=== PATIENT | female | born 1980 | race American Indian/Alaskan Native ===

== ENCOUNTER 2016-05-30 18:36 | Outpatient (CLI) | payer MEDICAID ==
[2016-05-30 19:07] VITALS: BP 116/60
[2016-05-30 20:15] LABS: Bacteria,Urine 1+ /HPF (Negative); Bilirubin,Urine NEG (Negative); Blood,Urine SM (Negative); Ketones,Urine NEG (Negative); Leukocyte Esterase,Urine NEG (Negative); Nitrite,Urine NEG (Negative); Protein,Urine <15 mg/dL mg/dL (Negative); Urobilinogen,Urine < 2.0 mg/dL (<2.0); WBC,Urine < 1.0 /HPF (0.0-6.0)
== END 2016-05-30 20:46 | disposition home or self-care (01) ==
LOC: TRG 18:36
PROVIDERS: ATTEND Obstetrics & Gynecology
DX: O47.02 False labor before 37 completed weeks of gestation, second trimester (principal); Z3A.20 20 weeks gestation of pregnancy
CPT/HCPCS: 81001

== ENCOUNTER 2016-10-01 19:08 | Outpatient (CLI) | payer MEDICAID ==
[2016-10-01 19:28] VITALS: BP 115/72
[2016-10-01 19:58] LABS: Bilirubin,Urine NEG (Negative); Blood,Urine NEG (Negative); Ketones,Urine NEG (Negative); Leukocyte Esterase,Urine NEG (Negative); Nitrite,Urine NEG (Negative); Protein,Urine <15 mg/dL mg/dL (Negative); RBC,Urine < 1.0 /HPF (0.0-6.0); Urobilinogen,Urine < 2.0 mg/dL (<2.0); WBC,Urine < 1.0 /HPF (0.0-6.0)
== END 2016-10-01 20:33 | disposition home or self-care (01) ==
LOC: TRG 19:08
PROVIDERS: ATTEND Obstetrics & Gynecology
DX: O26.893 Other specified pregnancy related conditions, third trimester (principal); R73.9 Hyperglycemia, unspecified; Z3A.37 37 weeks gestation of pregnancy
CPT/HCPCS: 59025; 81001; 82962

== ENCOUNTER 2016-10-10 11:56 | Outpatient (CLI) | payer MEDICAID ==
--- NOTE | 2016-10-10 13:41 | Ultrasound Report ---
ULTRASOUND BIOPHYSICAL PROFILE: History: well being Technique: Transabdominal ultrasound with Doppler interrogation. 2 - breathing movements 2 - movements 2 - posture and tone 2 - Qualitative amniotic fluid volume 8 - TOTAL SCORE OF POSSIBLE 8 Heart Rate (bpm) 141
--- NOTE | 2016-10-10 13:42 | Ultrasound Report ---
ULTRASOUND OB LIMITED History: well being Technique: Transabdominal ultrasound with Doppler interrogation. Gestation: Single Position: Cephalic Amniotic Fluid: Normal GERONIMO = 10.7 cm Heart Rate: 141 BPM
== END 2016-10-10 14:40 | disposition home or self-care (01) ==
LOC: TRG 11:56
PROVIDERS: ATTEND Obstetrics & Gynecology
DX: O47.1 False labor at or after 37 completed weeks of gestation (principal); Z3A.38 38 weeks gestation of pregnancy
CPT/HCPCS: 59025; 76815; 76819

== ENCOUNTER 2016-10-11 09:36 | Inpatient (IN) | payer MEDICAID ==
[2016-10-11] MEDS ORDERED: NITRATEST PAPER MC ONE (11:00)
[2016-10-11] MEDS ORDERED: LACTATED RINGERS 1,000 ML ONE ×3 (12:42→16:22)
[2016-10-11] MEDS ORDERED: PITOCin/NS 20 UNIT/1000ML DRIP 20,000 MILLIUNITS/1,000 ML BAG IV ONE (13:05)
[2016-10-11] MEDS ORDERED: REGLAN ONE (13:06)
[2016-10-11] MEDS ORDERED: ANCEF/STERILE WATER 2 GM/20 ML 2 GM/20 ML SYRINGE IV ONE (13:06)
[2016-10-11] MEDS ORDERED: PEPCID IV ONE ×2 (13:06→13:32)
[2016-10-11] MEDS ORDERED: BICITRA ONE (13:06)
[2016-10-11] MEDS ORDERED: ANCEF/STERILE WATER 2 GM/20 ML 2 GM/20 ML SYRINGE IV NR (13:30)
[2016-10-11] MEDS ORDERED: BICITRA PO ONE (13:32)
[2016-10-11] MEDS ORDERED: REGLAN IV ONE (13:32)
--- NOTE | 2016-10-11 13:34 | History and Physical Report ---
History of Present Illness Date of examination: 10/11/16 Date of admission: 10/11/16 09:37 Chief complaint: leaking fluid History of present illness: Pt is a 36 year old -[place] female KUMAR 10/18/16 at 39w0d presents c/o leakage of fluid since yesterday (10/10/16) at 9 am. She reports rare contractions, as well as vaginal spotting this morning. She has had care since transfer into care at 15 weeks complicated by previous x 1, morbid obesity, pregestational diabetes, latex allergy, genital herpes without lesion or prodrome and GBS positive status. 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 Family/Genetic History: diabetes Social history: no significant social history - Obstetrical History Expected Date of Delivery: 10/18/16 Actual Gestation: 39 Week(s) 0 Day(s) : 2 Para: 1 Hx # Term Pregnancies: 1 Number of Pregnancies: 0 Spontaneous Abortions: 0 Induced : 0 Number of Living Children: 1 Medications and Allergies Allergies Allergy/AdvReac Type Severity Reaction Status Date / Time No Known Allergies Allergy Verified 05/30/16 18:43 Home Medications Medication Instructions Recorded Confirmed Last Taken Type RX: No Known Home Medications [No 05/30/16 05/30/16 Unknown History Reported Home Medications] Active Meds: Active Medications Citric Acid/Sodium Citrate (Bicitra) 30 ml PO ONCE ONE Stop: 10/11/16 13:33 Famotidine (Pepcid) 20 mg IV ONCE ONE Stop: 10/11/16 13:33 Cefazolin Sodium (Ancef/Sterile Water 2 Gm/20 Ml) 2 gm in 20 mls @ 80 mls/hr IV PREOP NR PRN Reason: Protocol Lactated Ringer's (Lactated Ringers) 1,000 mls @ 2,250 mls/hr IV PREOP BOBO Stop: 10/12/16 14:27 Oxytocin/Sodium Chloride (Pitocin/Ns 20 Unit/1000ml Drip) 20 units in 1,000 mls @ 0 mls/hr IV TITR BOBO PRN Reason: As Directed Metoclopramide HCl (Reglan) 10 mg IV ONCE ONE Stop: 10/11/16 13:33 Review of Systems All systems: negative - Vital Signs Vital signs: Vital Signs Pulse BP 94 H 117/64 10/11/16 10:00 10/11/16 10:00 Temp Pulse Resp BP Pulse Ox 86 119/63 100 10/11/16 13:29 10/11/16 13:11 10/11/16 13:29 - Physical Exam Breasts: Positive: deferred Cardiovascular: Regular rate Lungs: Positive: Clear to auscultation Abdomen: Positive: soft (gravid,obese) Uterus: Positive: enlarged Extremities: Positive: normal, edema (trace ) - Obstetrical FHR: auscultation normal Uterine Contraction Monitor Mode: External Uterine Contraction Pattern: Irregular Uterine Tone Measurement Phase: Resting Results All other labs normal. Assessment and Plan A: IUP at 39w0d PROM Prolonged Rupture of Membranes Previous x 1 Morbid Obesity Pregestational Diabetes Genital Herpes GBS Positive P: Proceed with repeat section and other indicated procedures.
[2016-10-11 13:38] LABS: Basophils % (Auto) 0.8 % (0.0-1.8); Eosinophils % (Auto) 0.2 % (0.0-4.3); Hematocrit 35.6 % (30.3-42.9); Mean Corpuscular HGB Conc 34 % (30-34); Mean Corpuscular Hemoglobin 29 pg (28-32); Mean Corpuscular Volume 86 fl (79-97); Platelet Count 129 K/mm3 (140-440); Red Blood Count 4.16 M/mm3 (3.65-5.03); Red Cell Distribution Width 15.7 % (13.2-15.2)
--- NOTE | 2016-10-11 13:41 | Ultrasound Report ---
BIOPHYSICAL PROFILE: 2 - breathing movements 2 - movements 2 - posture and tone 0 - Qualitative amniotic fluid volume 6 - TOTAL SCORE OF POSSIBLE 8 Heart Rate (bpm) 135
--- NOTE | 2016-10-11 13:42 | Ultrasound Report ---
Limited OB ultrasound. Findings: A single intrauterine is identified in cephalic presentation. The GERONIMO is decreased at 1.8 cm. The heart rate is 135 beats per minute. Impression: Oligohydramnios.
[2016-10-11] MEDS ORDERED: LACTATED RINGERS 1,000 ML IV SCH ×2 (14:00→23:00)
[2016-10-11] MEDS ORDERED: PITOCin/NS 20 UNIT/1000ML DRIP 20 UNITS/1,000 ML BAG IV SCH ×2 (14:00→19:16)
[2016-10-11] MEDS ORDERED: MORPHINE ONE (14:08)
[2016-10-11] MEDS ORDERED: NACL 0.9% 1000 ML 1,000 ML ONE (14:47)
[2016-10-11] MEDS ORDERED: DILAUDID ONE (15:49)
[2016-10-11] MEDS ORDERED: NEO SYNEPHRINE/NS Syringe(OR USE) IV ONE (16:00)
--- NOTE | 2016-10-11 16:36 | Procedure Note ---
OB Delivery Note - Delivery Date of Delivery: 10/11/16 Surgeon: PATRICIA SHRESTHA Estimated blood loss: 1000cc - Section Preop diagnosis: repeat , other (PROM) section procedure: section, repeat low transverse Disposition: PACU Complications: uterine atony Narrative: Please see operative note. - Infant A at 1 minute: 8 at 5 minutes: 9 Gender: Male (3271g (7lb 3.3 oz) @ 1500pm)
--- NOTE | 2016-10-11 16:44 | Operative Report ---
Operative Report Operative Report: Date of procedure: October 11, 2016 Preoperative diagnosis: 1) IUP at 39w0d 2) Previous x 1 3) PROM 4) Prolonged ROM 5) Morbid Obesity 6) Pregestational Diabetes Postoperative diagnosis: Same Procedure: Repeat low transverse section Surgeon: Ying Green M.D. Anesthesia: Spinal-epidural Findings: 1) Viable male , Apgars 8 and 9, weight 3271 g, (7 lb 3.3 oz) Nuchal cord x 1 2) Normal-appearing uterus ovaries and tubes Estimated blood loss: 1000 mL IV fluids: 2600 mL Urine output:150 mL, clear at the end of the procedure Drains: Gonzales to gravity Specimens: placenta to pathology Complications: None. Counts correct x 2 Disposition: Stable to PACU Indication for procedure: Pt is a 36 year old -Sy[place] female at 39w0d with a h/o one previous section who presents with rupture of membranes since 9 am on . The decision was made to proceed with repeat section and other indicated procedures. Operation in detail: After the risks, benefits, alternatives and complications were explained to the patient she gave informed consent for the procedure. She was subsequently taken to the operating room where spinal-epidural anesthesia was noted to be adequate. She was subsequently placed in the dorsal supine position with leftward tilt and prepped and draped in a normal sterile fashion. heart tones were noted to be in the 145s prior to incision. A timeout was performed. A Pfannenstiel skin incision was made with the knife and carried down to the layer of the fascia with the Bovie. The fascia was incised in the midline and the fascial incision was extended bilaterally with the Bovie. Attention was then turned to the superior aspect of the incision which was grasped with two Kochers, tented up, and dissected off the rectus muscles. Attention was then turned to the inferior aspect of the incision which was grasped with two Kochers , tented up and dissected off the rectus muscles. The rectus muscles were then in the midline and partially transected for adequate visualization. The peritoneum was then entered bluntly. The peritoneal incision was extended with good visualization of the bladder. The peritoneal incision was then stretched. An Beltran self-retaining retractor was placed for visualization. The bladder blade was placed. The vesicouterine peritoneum was grasped with smooth pickups and incised with Metzenbaum scissors. Metzenbaum scissors were used to extend the incision bilaterally. The bladder flap was then created digitally and the bladder blade was replaced. A transverse incision was made in the lower uterine segment with a knife and extended bilaterally with the bandage scissors. The head was delivered, loose nuchal cord was reduced, and shoulder and body were delivered without difficulty. was bulb suctioned at delivery. The cord was clamped and cut and the was handed to NICU staff in attendance. Cord blood was collected. The placenta was then delivered manually. The uterus was then cleared of all clots and debris. The hysterotomy was then reapproximated with 0 Vicryl in a running locked fashion. A second layer of the same suture was used in imbricating fashion. A figure of eight of 2-0 Vicryl was used to obtain hemostasis. The hysterotomy was inspected and hemostasis was noted. The Beltran self-retaining retractor was removed. The gutters were irrigated and cleared of all clots and debris. The hysterotomy was again inspected and noted to be hemostatic. Surgicel was placed over the hysterotomy. Interceed was placed over the anterior surface of the uterus. Bleeding was noted on the right side of the omentum which was controlled with cautery. The cauterized area of the omentum was covered with Surgicel. Hemostasis was noted and the cauterized area was covered with Surgicel. The rectus muscles were then reapproximated with 2-0 Vicryl in an interrupted fashion then covered with Surgicel. The fascia was reapproximated with 0 Vicryl in a running fashion. The subcutaneous tissue was reapproximated with 3- 0 Vicryl in a running fashion. The skin was reapproximated with 4-0 Vicryl in a subcuticular fashion. The incision was then covered with steri strips and a pressure dressing. The procedure was then ended. The patient tolerated the procedure well and was taken to the PACU in stable condition. All instrument, lap, and needle counts were correct 3.
[2016-10-11] MEDS ORDERED: LANSINOH TP PRN (19:16)
[2016-10-11] MEDS ORDERED: D50W (25GM) Syringe IV PRN (19:16)
[2016-10-11] MEDS ORDERED: ZOFRAN IV PRN (19:16)
[2016-10-11] MEDS ORDERED: MORPHINE IV PRN (19:16)
[2016-10-11] MEDS ORDERED: MYLICON PO PRN (19:16)
[2016-10-11] MEDS ORDERED: NARCAN 0.4 MG/1 ML IV PRN (19:16)
[2016-10-11] MEDS ORDERED: SODIUM CHLORIDE FLUSH SYRINGE 10 ML IV NR (19:16)
[2016-10-11] MEDS ORDERED: TUCKS PAD TP PRN (19:16)
[2016-10-11 21:07] LABS: Hematocrit 33.1 % (30.3-42.9)
[2016-10-11] MEDS: FEOSOL PO SCH (22:00)
[2016-10-12] MEDS: MORPHINE IV PRN ×3 (00:09→10:14)
[2016-10-12] MEDS ORDERED: M-M-R II VACCINE SUB-Q ONE (06:00)
[2016-10-12] MEDS ORDERED: BOOSTRIX IM ONE (06:00)
[2016-10-12 07:47] LABS: Hematocrit 31.4 % (30.3-42.9); Hemoglobin 10.7 gm/dl (10.1-14.3); Mean Corpuscular HGB Conc 34 % (30-34); Mean Corpuscular Hemoglobin 29 pg (28-32); Mean Corpuscular Volume 86 fl (79-97); Platelet Count 104 K/mm3 (140-440); Red Blood Count 3.67 M/mm3 (3.65-5.03); Red Cell Distribution Width 15.3 % (13.2-15.2); White Blood Count 9.7 K/mm3 (4.5-11.0)
[2016-10-12] MEDS ORDERED: PRENATAL VITAMIN PO SCH (10:00)
--- NOTE | 2016-10-12 10:43 | Anesthesia Consultation ---
Anesthesia Consult and Med Hx Date of service: 10/12/16 - Airway Anesthetic Teeth Evaluation: Good ROM Head & Neck: Adequate Mental/Hyoid Distance: Adequate Mallampati Class: Class II Intubation Access Assessment: Probably Good - Pre-Operative Health Status ASA Pre-Surgery Classification: ASA3 Proposed Anesthetic Plan: Epidural, Spinal - Pulmonary Hx Asthma: No COPD: No Hx Pneumonia: No - Cardiovascular System Hx Hypertension: No - Central Nervous System Hx Seizures: No Hx Psychiatric Problems: No - Endocrine Hx Renal Disease: No Hx End Stage Renal Disease: No Hx Hypothyroidism: No Hx Hyperthyroidism: No - Hematic Hx Anemia: No Hx Sickle Cell Disease: No - Other Systems Hx Alcohol Use: No Hx Obesity: Yes (BMI 46)
--- NOTE | 2016-10-12 10:43 | Anesthesia Day of Surgery ---
Anesthesia Day of Surgery - Day of Surgery Patient Examined: Yes Patient H&P Reviewed: Yes Patient is NPO: Yes
--- NOTE | 2016-10-12 10:44 | Progress Note ---
Subjective Date of service: 10/12/16 Interval history: 1st POD after Patient is in the bed, comfortable. pain is well controlled with pain meds. Ambulated well. No residual neurological deficit. No pruritus. No anesthesia complications Objective - Constitutional Vitals: Vital Signs - 12hr 10/12/16 00:00 Temperature 98.6 F Pulse Rate 68 Respiratory 16 Rate Blood Pressure 121/69 - Labs CBC & Chem 7: 10/12/16 07:13 Labs: Abnormal lab results 10/11/16 10/11/16 10/12/16 Range/Units 13:00 20:28 04:22 RDW 15.7 H (13.2-15.2) % Plt Count 129 L (140-440) K/mm3 Seg Neutrophils % 71.7 H (40.0-70.0) % POC Glucose 127 H 124 H (70-105) 10/12/16 10/12/16 Range/Units 06:15 07:13 RDW 15.3 H (13.2-15.2) % Plt Count 104 L (140-440) K/mm3 Seg Neutrophils % (40.0-70.0) % POC Glucose 118 H (70-105)
[2016-10-12] MEDS: MILK OF MAGNESIA PO PRN (11:36)
--- NOTE | 2016-10-12 13:29 | Progress Note ---
Assessment and Plan A/P POD #1 s/p repeat csec VSS doing well pain controlled ambulating well A+ no rhogam indicated male infant - instructed to call for circumcision resume Post op care Subjective - Subjective Date of service: 10/12/16 Principal diagnosis: s/p repeat c/sec at 39 weeks Patient reports: appetite normal, voiding normally, pain well controlled, flatus , ambulating normally : doing well, nursing well Objective - Vital Signs Latest vital signs: Vital Signs Temp Pulse Resp BP Pulse Ox 10/12/16 07:30 97.9 F 81 18 106/62 10/12/16 00:00 98.6 F 68 16 121/69 10/11/16 19:30 98.6 F 68 16 107/61 10/11/16 18:40 97.6 F 66 16 75/44 10/11/16 18:00 88/46 10/11/16 17:50 63 17 92/49 98 10/11/16 17:40 67 11 L 98/57 96 10/11/16 17:30 74 19 89/52 99 10/11/16 17:20 70 12 91/52 99 10/11/16 17:10 69 12 91/48 99 10/11/16 17:01 81 14 93/49 99 10/11/16 16:51 72 11 L 79/29 98 10/11/16 16:45 97 10/11/16 13:37 97.8 F 88 16 119/63 99 10/11/16 13:34 95 H 100 10/11/16 13:29 86 100 Intake and Output 10/11/16 10/12/16 10/12/16 22:59 06:59 14:59 Intake Total 300 300 360 Output Total 100 150 Balance 300 200 210 Intake: Oral 360 Intake, Free Water 300 300 Output: Urine 100 150 Void 100 150 Other: Total, Intake Amount 360 Total, Output Amount 100 150 # Voids Void 1 Estimated Blood Loss 1,000 - Exam Breasts: Present: normal Cardiovascular: Present: Regular rate, Normal S1 Lungs: Present: Clear to auscultation, Normal air movement Abdomen: Present: normal appearance, soft, normal bowel sounds. Absent: distention, tenderness Vulva: both: normal Uterus: Present: normal, firm, fundal height below umbilicus. Absent: bogginess , tenderness Extremities: Present: normal Deep Tendon Reflex Grade: Normal +2 Incision: Present: normal, dry, intact - Labs Labs: Abnormal lab results 10/11/16 10/11/16 10/12/16 Range/Units 13:00 20:28 04:22 RDW 15.7 H (13.2-15.2) % Plt Count 129 L (140-440) K/mm3 Seg Neutrophils % 71.7 H (40.0-70.0) % POC Glucose 127 H 124 H (70-105) 10/12/16 10/12/16 Range/Units 06:15 07:13 RDW 15.3 H (13.2-15.2) % Plt Count 104 L (140-440) K/mm3 Seg Neutrophils % (40.0-70.0) % POC Glucose 118 H (70-105)
[2016-10-12] MEDS: PERCOCET 5/325 PO PRN ×2 (14:11→21:09)
[2016-10-12] MEDS ORDERED: CITRATE OF MAGNESIA PO ONE (20:00)
[2016-10-12] MEDS: FEOSOL PO SCH (21:04)
[2016-10-12] MEDS ORDERED: BENADRYL PO PRN (21:13)
[2016-10-13] MEDS: PERCOCET 5/325 PO PRN ×4 (02:24→18:30)
--- NOTE | 2016-10-13 08:57 | Progress Note ---
Assessment and Plan O: VSS AF PP H/H: 10.7/31.4 A: Stable POD #2 Anemia P: D/c home per pts request after regular diet Iron BID Routine meds and PO instructions Subjective - Subjective Date of service: 10/13/16 Principal diagnosis: s/p repeat c/sec at 39 weeks Patient reports: appetite normal, voiding normally, pain well controlled, flatus , bowel movement, ambulating normally, other (BM this am. Will attempt regular prior to discharge) : doing well, nursing well Objective - Vital Signs Latest vital signs: Vital Signs Temp Pulse Resp BP 10/13/16 01:00 100 H 20 103/64 10/12/16 16:50 98.4 F 80 18 92/56 10/12/16 12:10 98.4 F 82 18 96/56 Intake and Output 10/12/16 10/13/16 10/13/16 22:59 06:59 14:59 Intake Total 840 240 Balance 840 240 Intake: Oral 720 240 Intake, Free Water 120 Other: Total, Intake Amount 240 120 # Voids Void 1 1 # Bowel Movements 1 - Exam Breasts: Present: normal, Lungs: Present: Normal air movement Abdomen: Present: normal appearance, soft. Absent: distention Uterus: Present: normal, firm, fundal height below umbilicus. Absent: bogginess , tenderness Extremities: Present: normal, edema (trace) Incision: Present: normal, dry - Labs Labs: Abnormal lab results 10/12/16 10/12/16 10/13/16 Range/Units 15:02 18:17 01:13 POC Glucose 131 H 138 H 106 H (70-105)
--- NOTE | 2016-10-13 09:02 | Discharge Summary ---
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 Reason For Exam: Primary care physician: PATRICIA SHRESTHA Hospitalization Reason for admission: rupture of membranes, IUP at term Delivery: Procedure: repeat low transverse Episiotomy: none Laceration: none Incision: normal, dry, intact Other procedures: none complications: uterine atony Discharge diagnosis: IUP at term delivered [place] baby: male Condition at discharge: Good Disposition: DC-01 TO HOME OR SELFCARE Plan - Discharge Medications Prescriptions: Docusate Sodium [Colace] 100 mg PO QHS PRN #30 capsule PRN Reason: Constipation Ferrous Sulfate [Feosol 325 MG tab] 325 mg PO BID #60 tablet Ibuprofen [Motrin] 600 mg PO Q6H PRN #30 tablet PRN Reason: Pain oxyCODONE /ACETAMINOPHEN [Percocet 5/325] 1 tab PO Q6HR PRN #30 tablet PRN Reason: Pain - Provider Discharge Summary Activity: routine, no sex for 6 weeks, no heavy lifting 4 weeks, no strenuous exercise Additional instructions: [] Smoking cessation referral if applicable(refer to patient education folder for contact #) [] Refer to [facility]'s [facility] Booklet Call your doctor immediately for: * Fever > 100.5 * Heavy vaginal bleeding ( >1 pad per hour) * Severe persistent headache * Shortness of breath * Reddened, hot, painful area to leg or breast * Drainage or odor from incision. * Keep incision clean and dry at all times and follow doctor's instructions regarding bathing/showering - Follow up plan Follow up: PATRICIA SHRESTHA MD [Primary Care Provider] - 14 Days (call office to schedule infant circumcision)
[2016-10-13] MEDS: FEOSOL PO SCH ×2 (11:11→22:22)
[2016-10-13] MEDS: MILK OF MAGNESIA PO PRN (18:20)
[2016-10-14] MEDS: PERCOCET 5/325 PO PRN ×2 (03:08→09:14)
[2016-10-14 09:09] VITALS: BP 121/70
[2016-10-14] MEDS ORDERED: PERCOCET 5/325 PO PRN (09:30)
== END 2016-10-14 16:26 | disposition home or self-care (01) | DRG 765 ==
LOC: TRG 09:36 → LD 09:37 → OB 18:59
PROVIDERS: ADMIT Obstetrics & Gynecology; ATTEND Obstetrics & Gynecology
PROC: 10D00Z1 Extraction of Products of Conception, Low, Open Approach (ICD-10-PCS; principal; 2016-10-11)
DX: O34.211 Maternal care for low transverse scar from previous cesarean delivery (principal); O24.32 Unspecified pre-existing diabetes mellitus in childbirth; O99.214 Obesity complicating childbirth; O42.92 Full-term premature rupture of membranes, unspecified as to length of time between rupture and onset of labor; O98.32 Other infections with a predominantly sexual mode of transmission complicating childbirth; A60.00 Herpesviral infection of urogenital system, unspecified; O99.824 Streptococcus B carrier state complicating childbirth; E66.01 Morbid (severe) obesity due to excess calories; O69.81X0 Labor and delivery complicated by cord around neck, without compression, not applicable or unspecified; O62.2 Other uterine inertia; O90.81 Anemia of the puerperium; D64.9 Anemia, unspecified; Z3A.39 39 weeks gestation of pregnancy; Z37.0 Single live birth; Z68.42 Body mass index [BMI] 45.0-49.9, adult
CPT/HCPCS: 36415; 76815; 76819; 82962; 85014; 85018; 85025; 85027; 86850; 86900; 86901; 88307; 90715; 99211; A6250; G0463; J0690; J1170; J2270; J2370; J2590; J2765; J7030; J7120

== ENCOUNTER 2016-10-16 22:36 | Emergency (ER) | payer MEDICAID ==
[2016-10-17 00:17] LABS: Basophils % (Auto) 0.2 % (0.0-1.8); Eosinophils % (Auto) 1.3 % (0.0-4.3); Hemoglobin 10.7 gm/dl (10.1-14.3); Mean Corpuscular HGB Conc 33 % (30-34); Mean Corpuscular Hemoglobin 29 pg (28-32); Mean Corpuscular Volume 88 fl (79-97); Platelet Count 259 K/mm3 (140-440); Red Blood Count 3.76 M/mm3 (3.65-5.03); Red Cell Distribution Width 15.9 % (13.2-15.2)
[2016-10-17 00:31] LABS: INR 0.93 (0.87-1.13)
[2016-10-17 00:32] LABS: Partial Thromboplastin Time 33.9 Sec. (24.2-36.6)
[2016-10-17 00:41] LABS: Anion Gap 20 mmol/L; BUN/Creatinine Ratio 8.33; Blood Urea Nitrogen 5 mg/dL (7-17); Calcium 9.1 mg/dL (8.4-10.2); Carbon Dioxide 22 mmol/L (22-30); Chloride 101.8 mmol/L (98-107); Glucose 95 mg/dL (65-100); Potassium 4.1 mmol/L (3.6-5.0); Sodium 140 mmol/L (137-145)
--- NOTE | 2016-10-17 08:35 | Emergency Department Report ---
ED Shortness of Breath HPI - General Chief Complaint: Dyspnea/Respdistress Stated Complaint: FLUID ON LEGS, SHORTNESS OF BREATH Time Seen by Provider: 10/17/16 08:01 Source: patient Mode of arrival: Ambulatory Limitations: No Limitations - History of Present Illness Initial Comments: 36-year-old female here with complaint of leg swelling and shortness of breath. Patient is 5 days states that her legs continued to swell since she left. She's not had sudden onset of pain. Her shortness of breath is stable but consistent. States that when she takes her Percocet she feels more short of breath. Denies chest pain. No fevers chills nausea vomiting. No family history of blood clot. MD Complaint: shortness of breath -: Gradual, days(s) Consistency: constant Improves With: nothing Worsens With: nothing Associated Symptoms: other (lower extremity swelling) Treatments Prior to Arrival: none - Related Data Previous Rx's Medication Instructions Recorded Last Taken Type Docusate Sodium [Colace] 100 mg PO QHS PRN #30 capsule 10/12/16 Unknown Rx Ferrous Sulfate [Feosol 325 MG tab] 325 mg PO BID #60 tablet 10/12/16 Unknown Rx Ibuprofen [Motrin] 600 mg PO Q6H PRN #30 tablet 10/12/16 Unknown Rx oxyCODONE /ACETAMINOPHEN [Percocet 1 tab PO Q6HR PRN #30 tablet 10/12/16 Unknown Rx 5/325] Allergies Allergy/AdvReac Type Severity Reaction Status Date / Time No Known Allergies Allergy Verified 05/30/16 18:43 ED Review of Systems ROS: Stated complaint: FLUID ON LEGS, SHORTNESS OF BREATH Other details as noted in HPI Comment: All other systems reviewed and negative Constitutional: denies: chills, fever Eyes: denies: eye pain, eye discharge, vision change ENT: denies: ear pain, throat pain Respiratory: shortness of breath. denies: cough, wheezing Cardiovascular: denies: chest pain, palpitations Endocrine: no symptoms reported Gastrointestinal: denies: abdominal pain, nausea, diarrhea Genitourinary: denies: urgency, dysuria, discharge Musculoskeletal: denies: back pain, joint swelling, arthralgia Skin: denies: rash, lesions Neurological: denies: headache, weakness, paresthesias Psychiatric: denies: anxiety, depression Hematological/Lymphatic: denies: easy bleeding, easy bruising ED Past Medical Hx - Past Medical History Previous Medical History?: No Hx Hypertension: No Hx Diabetes: No Hx Deep Vein Thrombosis: No Hx Renal Disease: No Hx Sickle Cell Disease: No Hx Seizures: No Hx Asthma: No Hx HIV: No - Surgical History Past Surgical History?: Yes Additional Surgical History: C-Sec 10/11/16 - Family History Family history: no significant - Social History Smoking Status: Never Smoker Substance Use Type: None - Medications Home Medications: Home Medications Medication Instructions Recorded Confirmed Last Taken Type Docusate Sodium [Colace] 100 mg PO QHS PRN #30 capsule 10/12/16 Unknown Rx Ferrous Sulfate [Feosol 325 MG tab] 325 mg PO BID #60 tablet 10/12/16 Unknown Rx Ibuprofen [Motrin] 600 mg PO Q6H PRN #30 tablet 10/12/16 Unknown Rx oxyCODONE /ACETAMINOPHEN [Percocet 1 tab PO Q6HR PRN #30 tablet 10/12/16 Unknown Rx 5/325] ED Physical Exam - General Limitations: No Limitations General appearance: alert, in no apparent distress - Head Head exam: Present: atraumatic, normocephalic - Eye Eye exam: Present: normal appearance - ENT ENT exam: Present: mucous membranes moist - Neck Neck exam: Present: normal inspection - Respiratory Respiratory exam: Present: normal lung sounds bilaterally. Absent: respiratory distress, wheezes, rales - Cardiovascular Cardiovascular Exam: Present: regular rate, normal rhythm, other (bilateral breast tenderness). Absent: systolic murmur, diastolic murmur, rubs, gallop - GI/Abdominal GI/Abdominal exam: Present: soft, tenderness (tender over her scar), normal bowel sounds. Absent: distended, guarding - Extremities Exam Extremities exam: Present: normal inspection, full ROM, other (2+ edema bilaterally). Absent: tenderness - Back Exam Back exam: Present: normal inspection - Neurological Exam Neurological exam: Present: alert, oriented X3 - Psychiatric Psychiatric exam: Present: normal affect, normal mood - Skin Skin exam: Present: warm, dry, intact, normal color. Absent: rash ED Course Vital Signs 10/16/16 10/17/16 10/17/16 23:33 04:11 08:37 Temperature 98.9 F 98.5 F Pulse Rate 80 84 Respiratory 18 18 17 Rate Blood Pressure 132/81 Blood Pressure 129/90 [Right] O2 Sat by Pulse 99 99 Oximetry 10/17/16 10:07 Temperature 98.9 F Pulse Rate 73 Respiratory 16 Rate Blood Pressure Blood Pressure 96/69 [Right] O2 Sat by Pulse 98 Oximetry ED Medical Decision Making - Lab Data Result diagrams: 10/16/16 23:38 10/16/16 23:38 Laboratory Results - last 24 hr 10/16/16 10/16/16 10/16/16 23:38 23:38 23:38 WBC RBC Hgb Hct MCV MCH MCHC RDW Plt Count Lymph % (Auto) Stark % (Auto) Eos % (Auto) Baso % (Auto) Lymph # Stark # Eos # Baso # Seg Neutrophils % Seg Neutrophils # PT 12.4 INR 0.93 APTT 33.9 Sodium 140 Potassium 4.1 Chloride 101.8 Carbon Dioxide 22 Anion Gap 20 BUN 5 L Creatinine 0.6 L Estimated GFR > 60 BUN/Creatinine Ratio 8.33 Glucose 95 Calcium 9.1 Troponin T < 0.010 HCG, Qual Positive 10/16/16 23:38 WBC 8.0 RBC 3.76 Hgb 10.7 Hct 33.0 MCV 88 MCH 29 MCHC 33 RDW 15.9 H Plt Count 259 Lymph % (Auto) 24.3 Stark % (Auto) 7.6 H Eos % (Auto) 1.3 Baso % (Auto) 0.2 Lymph # 1.9 Stark # 0.6 Eos # 0.1 Baso # 0.0 Seg Neutrophils % 66.6 Seg Neutrophils # 5.3 PT INR APTT Sodium Potassium Chloride Carbon Dioxide Anion Gap BUN Creatinine Estimated GFR BUN/Creatinine Ratio Glucose Calcium Troponin T HCG, Qual - EKG Data -: EKG Interpreted by Mn - EKG Data 10/17/16 08:35 Sinus rhythm rate of 80 normal axis normal intervals and no ST-T wave changes - Medical Decision Making 36-year-old female here with bilateral swelling of the legs and shortness breath. Patient states she's been feeling short of breath since discharge from the hospital. She had a on October 11. Denies fevers chills nausea vomiting. She appears otherwise well. My suspicion is that this is likely peripheral edema that will mobilize on its own. Plan labs chest x-ray and bilateral DVT ultrasounds. Chest x-ray clear labs unremarkable DVT study is negative. Plan to discharge patient home counseled that she should not continue to take Percocet breast-feed her baby. If he is going to use these medications she should dump her breast milk. Do not suspect PE. Do not suspect eclampsia. Patient has normal blood pressure and no headache. Portions of this chart were dictated with dictation software. There may be dictation errors contained within this note. Critical care attestation.: If time is entered above; I have spent that time in minutes in the direct care of this critically ill patient, excluding procedure time. 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 Referrals: PRIMARY CARE [Primary Care Provider] - 3-5 Days
--- NOTE | 2016-10-17 09:26 | XRay Report ---
ROUTINE CHEST, TWO VIEWS: HISTORY: Shortness of breath. The trachea, heart, mediastinal contour, lung summers and bony thorax are unremarkable. IMPRESSION: Unremarkable chest x-ray.
[2016-10-17] MEDS ORDERED: MOTRIN PO ONE (09:47)
[2016-10-17 10:08] VITALS: BP 96/69
--- NOTE | 2016-10-18 10:03 | Vascular Lab Report ---
LOWER EXTREMITY VENOUS DUPLEX: REASON FOR EXAM: Swelling of the lower extremities. COMMENTS ON THE RIGHT: All veins visualized are freely compressible without evidence of internal echogenicity. Flow is spontaneous and phasic throughout. COMMENTS ON THE LEFT: All veins visualized are freely compressible without evidence of internal echogenicity. Flow is spontaneous and phasic throughout. IMPRESSION: No evidence of acute or chronic deep venous thrombosis in either lower extremity.
== END 2016-10-17 11:30 | disposition home or self-care (01) ==
LOC: ED 22:36
DX: R60.9 Edema, unspecified (principal); R06.02 Shortness of breath
CPT/HCPCS: 36415; 71020; 80048; 84484; 84703; 85025; 85610; 85730; 93005; 93010; 93970; 99284

== ENCOUNTER 2017-05-26 11:00 | Outpatient (CLI) | payer MEDICAID | END 2017-05-26 11:01 | disposition home or self-care (01) | LOC: SLR 11:00 | PROVIDERS: ATTEND Otolaryngology | DX: G47.30 Sleep apnea, unspecified (principal) | CPT/HCPCS: G0399 ==

== ENCOUNTER 2018-08-04 21:48 | Outpatient (CLI) | payer MEDICAID ==
[2018-08-04] MEDS ORDERED: LACTATED RINGERS 1,000 ML IV ONE (21:57)
[2018-08-04 22:10] VITALS: BP 105/66
[2018-08-04 22:32] LABS: Bilirubin,Urine NEG (Negative); Blood,Urine SM (Negative); Color,Urine Yellow (Yellow); Protein,Urine <15 mg/dL mg/dL (Negative); RBC,Urine < 1.0 /HPF (0.0-6.0); Urobilinogen,Urine < 2.0 mg/dL (<2.0); WBC,Urine < 1.0 /HPF (0.0-6.0)
== END 2018-08-04 22:54 | disposition home or self-care (01) ==
LOC: TRG 21:48
PROVIDERS: ATTEND Obstetrics & Gynecology
DX: O47.03 False labor before 37 completed weeks of gestation, third trimester (principal); O24.419 Gestational diabetes mellitus in pregnancy, unspecified control; Z3A.34 34 weeks gestation of pregnancy
CPT/HCPCS: 59025; 81001; 82962

== ENCOUNTER 2018-09-10 04:03 | Inpatient (IN) | payer MEDICAID ==
[2018-09-10] MEDS ORDERED: LACTATED RINGERS 500 ML IV ONE (04:38)
[2018-09-10] MEDS ORDERED: BRETHINE SUB-Q SCH (05:00)
[2018-09-10] MEDS ORDERED: LACTATED RINGERS 1,000 ML IV SCH ×3 (05:00→14:00)
[2018-09-10] MEDS ORDERED: SUBLIMAZE ONE (05:30)
[2018-09-10 05:36] LABS: Basophils % (Auto) 0.5 % (0.0-1.8); Eosinophils % (Auto) 0.1 % (0.0-4.3); Hemoglobin 13.3 gm/dl (10.1-14.3); Lymphocytes # (Auto) 2.1 K/mm3 (1.2-5.4); Lymphocytes % (Auto) 20.8 % (13.4-35.0); Mean Corpuscular HGB Conc 34 % (30-34); Mean Corpuscular Volume 86 fl (79-97); Monocytes # (Auto) 0.7 K/mm3 (0.0-0.8); Monocytes % (Auto) 7.2 % (0.0-7.3); Platelet Count 108 K/mm3 (140-440); Red Blood Count 4.54 M/mm3 (3.65-5.03); Red Cell Distribution Width 15.6 % (13.2-15.2)
[2018-09-10] MEDS ORDERED: REGLAN IV ONE (05:54)
[2018-09-10] MEDS ORDERED: PEPCID IV ONE (05:54)
[2018-09-10] MEDS ORDERED: BICITRA PO ONE (05:54)
[2018-09-10] MEDS ORDERED: PITOCin/NS 20 UNIT/1000ML DRIP 20 UNITS/1,000 ML BAG IV SCH ×2 (06:00→09:54)
[2018-09-10] MEDS ORDERED: ANCEF/STERILE WATER 2 GM/20 ML 2 GM/20 ML SYRINGE IV NR (06:00)
--- NOTE | 2018-09-10 06:07 | Anesthesia Consultation ---
Anesthesia Consult and Med Hx Date of service: 09/10/18 - Airway Anesthetic Teeth Evaluation: Good ROM Head & Neck: Adequate Mental/Hyoid Distance: Adequate Mallampati Class: Class II Intubation Access Assessment: Probably Good - Pulmonary Exam CTA: Yes - Cardiac Exam Cardiac Exam: RRR - Pre-Operative Health Status ASA Pre-Surgery Classification: ASA3 Proposed Anesthetic Plan: Spinal - Pulmonary Hx Asthma: No - Cardiovascular System Hx Hypertension: No - Central Nervous System Hx Seizures: No Hx Psychiatric Problems: Yes (anxiety) - Endocrine Hx Renal Disease: No Hx Non-Insulin Dependent Diabetes: Yes (gestational diabetes) Hx Hypothyroidism: No Hx Hyperthyroidism: No - Hematic Hx Anemia: No Hx Sickle Cell Disease: No - Other Systems Hx Alcohol Use: No Hx Obesity: Yes
[2018-09-10] MEDS ORDERED: PHENERGAN PR PRN ×3 (06:08→09:54)
[2018-09-10] MEDS ORDERED: DILAUDID IV PRN ×2 (06:08)
[2018-09-10] MEDS ORDERED: PHENERGAN PO PRN ×2 (06:08→07:56)
[2018-09-10] MEDS ORDERED: NARCAN 0.4 MG/1 ML IV PRN ×3 (06:08→09:54)
[2018-09-10] MEDS ORDERED: NUBAIN IV PRN (06:08)
[2018-09-10] MEDS ORDERED: ZOFRAN IV PRN ×2 (06:08→07:56)
--- NOTE | 2018-09-10 06:08 | Anesthesia Day of Surgery ---
Anesthesia Day of Surgery - Day of Surgery Patient Examined: Yes Patient H&P Reviewed: Yes Patient is NPO: Yes
--- NOTE | 2018-09-10 06:26 | History and Physical Report ---
History of Present Illness Date of examination: 09/10/18 Date of admission: 09/10/18 05:33 Chief complaint: I'm in labor History of present illness: Pt is a 38 year old with 2 previous c-sections who presents with active contractions at 38.6 weeks along with SROM. Pt was scheduled for an repeat section on this coming Monday. Pt received care at [facility] however records are not available for review at this time. Past History Past Medical History: no pertinent history Past Surgical History: no surgical history Social history: - Obstetrical History Expected Date of Delivery: 09/18/18 Actual Gestation: 39 Week(s) 0 Day(s) : 3 Para: 2 Number of Living Children: 2 Medications and Allergies Allergies Allergy/AdvReac Type Severity Reaction Status Date / Time Latex, Natural Rubber AdvReac Itching Verified 08/04/18 22:22 Home Medications Medication Instructions Recorded Confirmed Last Taken Type Aspirin [Aspirin BABY CHEW TAB] 81 mg PO QDAY 08/04/18 08/04/18 08/03/18 History Insulin NPH Human Isophane 32 units SUB-Q QHS 08/04/18 08/04/18 08/03/18 22:00 History [Humulin N] Insulin NPH Human Isophane 38 units SUB-Q QAM 08/04/18 08/04/18 08/04/18 12:30 History [Humulin N] Insulin Regular, Human [Humulin R] 24 units SUB-Q QHS 08/04/18 08/04/18 08/03/18 22:00 History Insulin Regular, Human [Humulin R] 28 units SUB-Q QAM 08/04/18 08/04/18 08/04/18 12:30 History Vit-Fe Fumar-FA [ 1 tab PO QDAY 08/04/18 08/04/18 08/03/18 History Vitamin] Active Meds: Active Medications Acetaminophen (Tylenol) 650 mg PO Q6H BOBO Stop: 09/12/18 01:01 Hydromorphone HCl (Dilaudid) 0.5 mg IV Q5M PRN PRN Reason: Breakthrough Pain Stop: 09/10/18 23:59 Hydromorphone HCl (Dilaudid) 0.5 mg IV Q4H PRN PRN Reason: breakthrough pain > 7/10 Lactated Ringer's (Lactated Ringers) 1,000 mls @ 999 mls/hr IV DIRECT BOBO Last Admin: 09/10/18 05:05 Dose: 999 mls/hr Documented by: Oxytocin/Sodium Chloride (Pitocin/Ns 20 Unit/1000ml Drip) 20 units in 1,000 mls @ 0 mls/hr IV TITR BOBO Lactated Ringer's (Lactated Ringers) 1,000 mls @ 2,250 mls/hr IV PREOP BOBO Stop: 09/11/18 06:27 Ketorolac Tromethamine (Toradol) 15 mg IV Q6HR BOBO Stop: 09/12/18 06:01 Nalbuphine HCl (Nubain) 10 mg IV Q2H PRN PRN Reason: Pain, Moderate (4-6) Naloxone HCl (Narcan 0.4 Mg/1 Ml) 0.2 mg IV Q2MIN PRN PRN Reason: Res Rate </= 8 or 02 SAT < 92% Ondansetron HCl (Zofran) 4 mg IV Q8H PRN PRN Reason: Nausea And Vomiting Promethazine HCl (Phenergan) 25 mg PO Q6H PRN PRN Reason: Nausea And Vomiting Promethazine HCl (Phenergan) 25 mg NE Q6H PRN PRN Reason: Nausea And Vomiting Sodium Chloride (Sodium Chloride Flush Syringe 10 Ml) 10 ml IV PRN PRN PRN Reason: LINE FLUSH Terbutaline Sulfate (Brethine) 0.25 mg SUB-Q Q20MIN [facility] Stop: 09/12/18 05:01 Last Admin: 09/10/18 05:00 Dose: 0.25 mg Documented by: Review of Systems All systems: negative Constitutional: weight gain Genitourinary: leakage of fluid, contractions - Vital Signs Vital signs: Vital Signs Pulse BP 90 76/48 09/10/18 04:42 09/10/18 04:42 Temp Pulse Resp BP Pulse Ox 90 76/48 09/10/18 04:42 09/10/18 04:42 - Physical Exam Cardiovascular: Regular rate, Normal S1, Normal S2 Lungs: Positive: Clear to auscultation, Normal air movement Abdomen: Positive: normal appearance, soft, normal bowel sounds Genitourinary (Female): Positive: normal external genitalia, normal perenium Extremities: Positive: normal Deep Tendon Reflex Grade: Normal +2 - Obstetrical Cervical Dilatation: 1 Cervical Effacement Percentage: 50 station: -3 Uterine Contraction Frequency (min): 2 Uterine Contraction Pattern: Regular Results Result Diagrams: 09/10/18 20:13 Abnormal lab results 09/10/18 Range/Units 05:15 RDW 15.6 H (13.2-15.2) % Plt Count 108 L (140-440) K/mm3 Seg Neutrophils % 71.4 H (40.0-70.0) % All other labs normal. Assessment and Plan IUP at 38.6 weeks scheduled for elective section, but is now in active labor. Will admit and prepare for . Consents signed and placed on chart.
[2018-09-10] MEDS ORDERED: NACL 0.9% IR ONE (06:40)
[2018-09-10] MEDS ORDERED: WATER FOR IRRIG STERILE IR ONE (06:40)
[2018-09-10] MEDS ORDERED: SUBLIMAZE IV ONE (06:42)
[2018-09-10] MEDS ORDERED: ZOFRAN ONE (06:51)
[2018-09-10] MEDS ORDERED: NEO SYNEPHRINE ONE (06:51)
[2018-09-10] MEDS ORDERED: TYLENOL PO SCH (07:00)
[2018-09-10] MEDS ORDERED: SODIUM CHLORIDE FLUSH SYRINGE 10 ML IV PRN (07:00)
[2018-09-10] MEDS ORDERED: TORADOL ONE (07:37)
--- NOTE | 2018-09-10 07:50 | Procedure Note ---
OB Delivery Note - Delivery Date of Delivery: 09/10/18 Surgeon: RASTA ELIZONDO Estimated blood loss: 500cc - Section Preop diagnosis: repeat Postop diagnosis: same section procedure: repeat low transverse Disposition: PACU Complications: none Narrative: see op report - Infant A at 1 minute: 8 at 5 minutes: 9 Gender: Male (9 pounds 1 ounce 4118grams)
--- NOTE | 2018-09-10 07:55 | Post Anesthesia Evaluation ---
- Post Anesthesia Evaluation Patient Participated: Yes Airway Patent: Yes Stable Respiratory Function: Yes Nausea/Vomiting: No Temp > 96.8F: Yes Pain Manageable: Yes Adequeate Hydration: Yes Anesthesia Complications: No Block Receding Appropriately: Yes Patient on Ventilator: No
[2018-09-10] MEDS ORDERED: MORPHINE IV PRN ×2 (07:56→09:54)
[2018-09-10] MEDS ORDERED: SODIUM CHLORIDE FLUSH SYRINGE 10 ML IV NR ×2 (08:00→09:54)
[2018-09-10] MEDS ORDERED: LANSINOH TP PRN (09:54)
[2018-09-10] MEDS ORDERED: D5LR 1,000 ML IV SCH (09:54)
[2018-09-10] MEDS ORDERED: TUCKS PAD TP PRN (09:54)
[2018-09-10] MEDS ORDERED: TORADOL IV PRN (09:54)
[2018-09-10] MEDS: PERCOCET 5/325 PO PRN ×2 (11:24→17:57)
[2018-09-10] MEDS: IBUPROFEN PO PRN ×2 (11:25→17:58)
[2018-09-10] MEDS ORDERED: TORADOL IV SCH (12:00)
[2018-09-10 20:43] LABS: Hematocrit 29.9 % (30.3-42.9); Hemoglobin 10.3 gm/dl (10.1-14.3)
[2018-09-10] MEDS: MILK OF MAGNESIA PO PRN (21:00)
[2018-09-10] MEDS: MYLICON PO PRN (21:00)
[2018-09-11] MEDS: PERCOCET 5/325 PO PRN ×4 (02:27→22:02)
--- NOTE | 2018-09-11 08:08 | Progress Note ---
Assessment and Plan A: POD#1 s/p repeat at term Pregestational insulin dependent diabetes Morbid obesity P: Routine postop care Regular diet Restart insulin at half of doses Closely monitor clinically Subjective - Subjective Date of service: 09/11/18 Principal diagnosis: s/p repeat section, pregestational diabetes, morbid obesity Interval history: Suboptimal pain control. Otherwise doing well. Patient reports: appetite normal, flatus, pain poorly controlled, ambulating normally (to bathroom ), no bowel movement [place]: doing well Objective - Vital Signs Latest vital signs: Vital Signs Temp Pulse Resp BP BP Pulse Ox 09/11/18 05:32 98.0 F 97 H 18 119/55 96 09/11/18 01:40 97.5 F L 81 18 111/60 99 09/10/18 20:59 18 09/10/18 20:40 97.7 F 90 20 108/63 99 09/10/18 16:49 97.6 F 76 16 107/58 100 09/10/18 12:34 98.0 F 90 16 108/56 96 09/10/18 10:10 97.3 F L 87 22 93/51 09/10/18 09:20 97.6 F 81 20 103/58 100 09/10/18 09:15 80 20 98/61 100 09/10/18 09:05 79 20 79/42 100 09/10/18 08:50 80 17 87/48 100 09/10/18 08:35 82 17 77/33 100 09/10/18 08:20 85 17 71/33 100 Intake and Output 09/10/18 09/11/18 09/11/18 22:59 06:59 14:59 Intake Total 240 600 Output Total 800 400 Balance -560 200 Intake: Oral 240 Intake, Free Water 600 Output: Urine 800 400 Indwelling Catheter 400 Void 400 400 Other: Total, Intake Amount 240 Total, Output Amount 400 400 # Voids Void 1 - Exam Breasts: Present: deferred Cardiovascular: Present: Regular rate Lungs: Present: Clear to auscultation Abdomen: Present: soft (obese ), distention (mild ), normal bowel sounds Uterus: Present: fundal height at umbilicus Extremities: Present: edema (trace) Incision: Present: dressed - Labs Labs: Abnormal lab results 09/10/18 09/11/18 Range/Units 20:13 02:39 Hct 29.9 L D (30.3-42.9) % POC Glucose 110 H (70-105)
[2018-09-11] MEDS ORDERED: D50W (25GM) Syringe IV PRN (09:00)
[2018-09-11] MEDS: PRENATAL VITAMIN PO SCH (09:26)
[2018-09-11] MEDS: TORADOL IV SCH ×3 (09:27→22:02)
[2018-09-11] MEDS: HumuLIN R SUB-Q SCH ×2 (09:28→17:00)
[2018-09-11] MEDS: MYLICON PO PRN ×2 (11:12→16:36)
[2018-09-11] MEDS: BENADRYL PO PRN ×3 (11:12→22:20)
[2018-09-11] MEDS: MILK OF MAGNESIA PO PRN (22:03)
[2018-09-12] MEDS: TORADOL IV SCH (03:13)
--- NOTE | 2018-09-12 08:05 | Progress Note ---
Assessment and Plan A: POD#2 s/p repeat at term Pregestational insulin dependent diabetes Morbid obesity P: Routine postop care Regular diet Restart insulin at half of doses- sugars under control Closely monitor clinically Subjective - Subjective Date of service: 09/12/18 Principal diagnosis: s/p repeat section, pregestational diabetes, morbid obesity Patient reports: appetite normal, voiding normally, pain well controlled, flatus, ambulating normally : doing well Objective - Vital Signs Latest vital signs: Vital Signs Temp Pulse Resp BP Pulse Ox 09/12/18 00:15 68 09/12/18 00:10 98.6 F 18 102/45 09/11/18 16:47 97.6 F 96 H 16 115/71 99 Intake and Output 09/11/18 09/12/18 09/12/18 23:59 07:59 15:59 Intake Total 200 Balance 200 Intake: Oral 200 Other: Total, Intake Amount 200 - Exam Breasts: Present: normal Cardiovascular: Present: Regular rate, Normal S1 Lungs: Present: Clear to auscultation, Normal air movement Abdomen: Present: normal appearance, soft, normal bowel sounds. Absent: distention, tenderness, guarding Uterus: Present: normal, firm. Absent: bogginess, tenderness Extremities: Present: normal Incision: Present: normal, dry, intact - Labs Labs: Abnormal lab results 09/11/18 Range/Units 16:49 POC Glucose 55 L (70-105)
[2018-09-12] MEDS: HumuLIN R SUB-Q SCH ×2 (08:15→16:58)
[2018-09-12] MEDS: PERCOCET 5/325 PO PRN ×3 (08:25→21:36)
[2018-09-12] MEDS: PRENATAL VITAMIN PO SCH ×2 (08:26→15:15)
[2018-09-12] MEDS: IBUPROFEN PO PRN ×2 (08:26→15:10)
[2018-09-12] MEDS: MYLICON PO PRN (08:35)
[2018-09-12] MEDS: MILK OF MAGNESIA PO PRN (08:35)
[2018-09-12] MEDS ORDERED: CITRATE OF MAGNESIA PO PRN (16:00)
[2018-09-13] MEDS: BENADRYL PO PRN (00:16)
[2018-09-13] MEDS: PERCOCET 5/325 PO PRN ×3 (04:47→18:06)
--- NOTE | 2018-09-13 08:33 | Progress Note ---
Assessment and Plan A: POD#3 s/p repeat at term Pregestational insulin dependent diabetes Morbid obesity P: Routine postop care Regular diet Insulin regulated D/c home with f/u in 2 weeks Subjective - Subjective Date of service: 09/13/18 Principal diagnosis: s/p repeat section, pregestational diabetes, morbid obesity Patient reports: appetite normal, voiding normally, pain well controlled, flatus, ambulating normally : doing well Objective - Vital Signs Latest vital signs: Vital Signs Temp Pulse Resp BP BP Pulse Ox 09/13/18 04:47 16 09/13/18 00:00 98.6 F 77 18 109/72 09/12/18 16:37 98.6 F 90 20 99/60 98 Intake and Output 09/12/18 09/13/18 09/13/18 23:59 07:59 15:59 Intake Total 840 Balance 840 Intake: Oral 360 Intake, Free Water 480 Other: Total, Intake Amount 360 # Voids Void 1 1 - Exam Breasts: Present: normal Cardiovascular: Present: Regular rate, Normal S1 Lungs: Present: Clear to auscultation, Normal air movement Abdomen: Present: normal appearance, soft, normal bowel sounds. Absent: distention, tenderness, guarding Vulva: both: normal Uterus: Present: normal, firm Extremities: Present: normal Deep Tendon Reflex Grade: Normal +2 Incision: Present: normal, dry, intact - Labs Labs: Abnormal lab results 09/13/18 Range/Units 08:04 POC Glucose 66 L (70-105)
--- NOTE | 2018-09-13 08:35 | Discharge Summary ---
Providers - Providers Date of Admission: 09/10/18 05:33 Date of discharge: 09/13/18 Attending physician: CARLOS MCINTYRE Primary care physician: CARLOS MCINTYRE Hospitalization Reason for admission: active labor, section Procedure: section Episiotomy: none Laceration: none Incision: normal, dry, intact Other procedures: none complications: none Discharge diagnosis: IUP at term delivered baby: male Hospital course: Patient admitted in labor and proceeded with repeat csec. unremarkable postop course. continue Insulin. f/u in 2 weeks Condition at discharge: Good Disposition: DC-01 TO HOME OR SELFCARE Plan - Discharge Medications Prescriptions: Clindamycin [Clindamycin CAP] 300 mg PO Q6H #28 capsule Ibuprofen [Motrin] 800 mg PO Q8HR PRN #30 tablet PRN Reason: Pain, Moderate (4-6) oxyCODONE /ACETAMINOPHEN [Percocet 5/325] 1 tab PO Q6HR PRN #40 tablet PRN Reason: Pain - Provider Discharge Summary Activity: routine, no sex for 6 weeks, no strenuous exercise Diet: routine Instructions: routine Additional instructions: [] Smoking cessation referral if applicable(refer to patient education folder for contact #) [] Refer to [facility] Booklet Call your doctor immediately for: * Fever > 100.5 * Heavy vaginal bleeding ( >1 pad per hour) * Severe persistent headache * Shortness of breath * Reddened, hot, painful area to leg or breast * Drainage or odor from incision. * Keep incision clean and dry at all times and follow doctor's instructions regarding bathing/showering - Follow up plan Follow up: CARLOS MCINTYRE MD [Primary Care Provider] - 7 Days
[2018-09-13] MEDS: PRENATAL VITAMIN PO SCH (10:16)
[2018-09-13] MEDS: HumuLIN R SUB-Q SCH ×2 (10:17→18:48)
[2018-09-13] MEDS: IBUPROFEN PO PRN (12:06)
[2018-09-13 21:43] VITALS: BP 138/51
--- NOTE | 2018-09-14 01:42 | Operative Report ---
Operative Report Operative Report: The operative report for patient Miesha Gil Date of service 09/10/2018 Preoperative diagnosis: Intrauterine at 39-1/7 weeks 2. Previous x 2 3. Active labor Postoperative diagnosis: Same Procedure: Repeat low transverse section Surgeon: Dr. Radha Coronel EBL: 500 mL Urine output: 100 mL IV fluids: 700 mL LR Findings: Viable male in the vertex occiput anterior position. Weight 9 lbs. 1 oz. 4118 g Apgars 8 and 9]. Otherwise normal pelvic anatomy Specimens: None Complications: None Indication: The patient is a 38-year-old 3 para 2 who presented for a repeat in active labor. She was originally scheduled for this coming Monday however she began to labor on Monday evening the decision was made to proceed with the surgery at this time. Procedure: The patient was admitted to the OR with IV running and in place. She was properly identified as herself. She was placed under spinal anesthesia in the R without difficulty. She was placed in the dorsal supine position with a leftward tilt. A Gonzales catheter was inserted. She was then prepped and draped in the normal sterile fashion. An Allis test was used to confirm adequate anesthesia. Once confirmed, the incision was made with the scalpel and carried to the underlying fascia using the scalpel and the Bovie. The fascia was incised in the midline and incision was extended bilaterally using the curved Raya scissors. The fascia was then dissected from the underlying rectus muscles in a series of sharp and blunt dissection using the Raya scissors. Muscles were in the in the midline sharply using Metzenbaum scissors and the peritoneum was entered into bluntly using the surgeon's fingers. A bladder blade was then placed into the incision to protect the bladder. Following this the bladder flap was created. Hysterotomy incision was then made in the scalpel. Upon uterine entry, the amniotic sac was ruptured for clear fluid. The was then delivered in the occiput anterior position. His mouth and nose were suctioned on the field. The cord was clamped and cut and he was handed to the waiting NICU personnel. The placenta was delivered manually and taken off the field. The uterus was then exteriorized and cleared of all clots and debris. The hysterotomy incision was then closed in a running locked fashion using 0 Vicryl. The abdomen was then copiously irrigated with warm normal saline. Following this the uterus was replaced into the abdominal cavity. At this point the muscles were reapproximated in the midline using individual sutures of 0 Vicryl. Following this the fascia was closed in a running fashion using 0 Vicryl. Tissue was then copiously irrigated. . Skin was closed in a running fashion using 3-0 Monocryl. The sponge lap needle and instrument counts were correct 2. The patient tolerated the procedure well. She was taken to recovery in stable condition.
== END 2018-09-13 22:40 | disposition home or self-care (01) | DRG 766 ==
LOC: TRG 04:03 → APU 05:33 → OB 09:40 → LD 09:48 → OB 10:18
PROVIDERS: ADMIT Obstetrics & Gynecology; ATTEND Obstetrics & Gynecology
PROC: 10D00Z1 Extraction of Products of Conception, Low, Open Approach (ICD-10-PCS; principal; 2018-09-10)
DX: O34.211 Maternal care for low transverse scar from previous cesarean delivery (principal); O99.344 Other mental disorders complicating childbirth; F41.9 Anxiety disorder, unspecified; O24.429 Gestational diabetes mellitus in childbirth, unspecified control; O99.214 Obesity complicating childbirth; E66.01 Morbid (severe) obesity due to excess calories; Z91.040 Latex allergy status; Z37.0 Single live birth; Z3A.39 39 weeks gestation of pregnancy; Z79.82 Long term (current) use of aspirin; Z79.899 Other long term (current) drug therapy; Z79.4 Long term (current) use of insulin
CPT/HCPCS: 36415; 82947; 82962; 85014; 85018; 85025; 86592; 86850; 86900; 86901; G0378; A6250; J0690; J1815; J1885; J2270; J2370; J2405; J2590; J2765; J3010; J3105; J7120

== ENCOUNTER 2018-09-27 08:09 | Outpatient (CLI) | payer MEDICAID ==
[2018-09-27] MEDS ORDERED: XYLOCAINE TOPICAL 4% TP ONE (08:32)
== END 2018-09-27 08:10 | disposition home or self-care (01) ==
LOC: WOUND 08:09
PROVIDERS: ATTEND Surgery
DX: T81.89XD Other complications of procedures, not elsewhere classified, subsequent encounter (principal); Y83.8 Other surgical procedures as the cause of abnormal reaction of the patient, or of later complication, without mention of misadventure at the time of the procedure
CPT/HCPCS: 99214; G0463

== ENCOUNTER 2018-10-04 08:00 | Outpatient (CLI) | payer MEDICAID | END 2018-10-04 08:01 | disposition home or self-care (01) | LOC: WOUND 08:00 | PROVIDERS: ATTEND Surgery | DX: T81.89XD Other complications of procedures, not elsewhere classified, subsequent encounter (principal); E11.9 Type 2 diabetes mellitus without complications; Y83.8 Other surgical procedures as the cause of abnormal reaction of the patient, or of later complication, without mention of misadventure at the time of the procedure | CPT/HCPCS: 99213; G0463 ==

== ENCOUNTER 2019-04-29 12:41 | Outpatient (CLI) | payer MEDICAID ==
--- NOTE | 2019-04-29 13:17 | XRay Report ---
CHEST 2 VIEWS INDICATION: RIGHT SIDE TIGHTNESS. COMPARISON: 10/17/2016 FINDINGS: Support devices: None. Heart: Within normal limits. Pulmonary vasculature: Normal. Lungs/pleura: No acute air space or interstitial disease. No pneumothorax. Additional findings: None. IMPRESSION: 1. Normal chest. Signer Name: Zachery Syed MD Signed: 04/29/2019 1:13 PM Workstation Name: [id number]
== END 2019-04-29 12:42 | disposition home or self-care (01) ==
LOC: XRAY 12:41
PROVIDERS: ATTEND Family Medicine
DX: R07.89 Other chest pain (principal)
CPT/HCPCS: 71046